=== PATIENT | female | born 1940 | race Caucasian/White ===

== ENCOUNTER 2017-02-22 18:30 | Inpatient (IN) | payer MEDICARE, SELFPAY ==
[~2017-02-22 18:30] MED LIST: ACTOS15 MG PO; ALLOPURINOL100 MG PO; AMARYL4 MG PO; ASPIR-TRIN325 M1 PO; ASPIRIN325 M1 PO; ASPIRIN325 M3 PO; BACTRIM DS TAB1 EAC2 PO; CALCIUM 600+D1 EAC1 PO; CALCIUM 600+D1 EAC6 PO; CARVEDILOL25 MG PO; CATAPRES0.1 M1 PO; CEPHALEXIN500 M1 PO; CHOLESTEROL MED PO; CIPROFLOXACIN750 M1 PO; CLARITIN10 M6 PO; CLINDAMYCIN HC300 M2 PO; CLONIDINE HCL0.2 MG PO; COLACE100 M1 PO; COLCRYS0.6 M1 PO; COREG25 M1 PO; DARVOCET-N 1001 TAB PO; EQL FISH OIL 1,1 CA1 PO; EQL FISH OIL 11 EAC2 PO; FUROSEMIDE20 MG PO; FUROSEMIDE40 M2 PO; GEMFIBROZIL600 M1 PO; GLUCOPHAGE500 MG PO; GLUCOSAMINE & C1 CAP PO; HTN MED PO; HUMALOG100 UNITS/ SC; KEFLEX500 M4 PO; LANTUS100 U/ML SC; LASIX40 M1 PO; LASIX80 M1 PO; LEVEMIR100 UNITS/ SC; LIPITOR80 M1 PO; LISINOPRIL; LISINOPRIL10 MG PO; LORATADINE10 M2 PO; MIRALAX17 G2 PO; MOTRIN IB200 M1 PO; NIACIN TD500 MG PO; NIACIN400 MG PO; NORCO 5/325 TAB1 TAB PO; NORVASC10 M2 PO; NOVOLIN-R100 UNITS/ SC; NOVOLOG100 UNITS/; NOVOLOG100 UNITS/ SC; SULFAMETHOXAZO1 EAC5 PO; TRAMADOL HCL50 M2 PO; TRIAMTERENE; TRIAMTERENE PO; TRICOR; TYLENOL PM EX-1 EAC4 PO; VITAMIN C; VITAMIN C500 M3 PO; VITAMIN D; VITAMIN D250000 UNI1 PO; VITAMIN E400 UNI7 PO; ZYLOPRIM100 M1 PO; [UNRECOGNIZED DRUG - OTHER] PO
[2017-02-22] MEDS ORDERED: CLARITIN10 M6 PO (19:19)
[2017-02-22] MEDS ORDERED: CIPRO250 M2 PO (19:20)
[2017-02-22] MEDS ORDERED: COLCRYS0.6 M1 PO (19:24)
[2017-02-22] MEDS ORDERED: PROTONIX40 M2 PO (19:25)
[2017-02-22] MEDS ORDERED: RENVELA800 M1 PO (19:26)
[2017-02-22] MEDS ORDERED: MUPIROCIN22 G2 TP (19:28)
[2017-02-22] MEDS ORDERED: HUMALOG100 UNITS/ SC (19:29)
[2017-02-22] MEDS ORDERED: LEVAQUIN250 M3 PO (19:31)
[2017-02-22] MEDS ORDERED: TRAMADOL HCL50 M2 PO (19:31)
[2017-02-22] MEDS ORDERED: CALCIUM ACETAT667 M3 PO (19:32)
[2017-02-22] MEDS ORDERED: POTASSIUM CHLO20 ME3 PO (19:32)
[2017-02-22 19:36] LABS: BASO % 0.4 % (0-2); EOS % 0.5 % (0-7); EOSINOPHIL ABSOLUTE COUNT 0.1 tho/cmm (0.0-0.7); HCT-HEMATOCRIT 31.1 % (34.0-49.0); HGB-HEMOGLOBIN 10.1 gm/dl (12.0-15.5); IMMATURE GRANULOCYTES ABSOLUTE 0.24 tho/cmm (0-0.03); IMMATURE GRANULOCYTES PERCENT 2.2 % (0-0.3); LYMPH % 14.6 % (20-45); LYMPH ABSOLUTE COUNT 1.6 tho/cmm (0.8-4.5); MCH (MEAN CORPUSCULAR HGB) 32.6 pg (28.0-32.0); MCHC MEAN CORPUSCULAR HGB CONC 32.5 % (32.0-36.0); MCV (MEAN CELL VOLUME) 100.3 fl (82.0-96.0); MEAN PLATELET VOLUME 9.9 cmc (9.4-12.4); MONO % 11.2 % (0-12); MONOCYTE ABSOLUTE COUNT 1.2 tho/cmm (0.0-1.2); NEUTROPHIL ABSOLUTE COUNT 7.9 tho/cmm (1.6-8.0); NEUTROPHIL-AUTOMATED 7.9 tho/cmm (1.6-8.0); NEUTROPHILS % 71.1 % (40-80); PLATELET COUNT 217 tho/cmm (150-450); RED CELL DISTRIBUTION WIDTH 18.1 % (12.4-16.4); WHITE BLOOD COUNT 11.1 tho/cmm (4.0-10.0)
[2017-02-22 19:55] LABS: ALB/GLOB RATIO 0.3 (0.8-2.0); ALKALINE PHOSPHATASE 120 U/L (33-138); ALT/SGPT 31 U/L (12-78); ANION GAP 19 mmol/L (0-20); AST/SGOT 24 U/L (10-40); BILIRUBIN,TOTAL 0.3 mg/dl (0-1.5); BLOOD UREA NITROGEN 47 mg/dl (6-24); C-REACTIVE PROTEIN 6.9 mg/dl (0-0.9); CALCIUM 9.9 mg/dl (8.5-10.5); CARBON DIOXIDE-VENOUS 24 mmol/L (22-32); CHLORIDE 90 mmol/l (96-110); CREATININE 9.93 mg/dl (0.50-1.10); GLUCOSE 115 mg/dL (70-110); SODIUM 129 mmol/L (135-145); eGFR VALUE FOR BLACK 4 mL/Min
[2017-02-22 20:51] LABS: URINE APPEARANCE HAZY; URINE BILIRUBIN MODERATE (NEG); URINE BLOOD LARGE (NEG); URINE COLOR DARK YELLOW; URINE GLUCOSE (UA) NEGATIVE (NEG); URINE KETONE SMALL (NEG); URINE LEUKOCYTE ESTERASE POSITIVE (NEG); URINE NITRITE POSITIVE (NEG); URINE PROTEIN MODERATE (NEG)
[2017-02-22 21:05] LABS: URINE AMORPHOUS 1+; URINE BACTERIA 1+; URINE EPITHELIAL CELLS 0-3 /[HPF] (0-10)
[2017-02-22 21:06] LABS: URINE RBC 15-30 /[HPF] (0-5); URINE WBC 30-50 /[HPF] (0-5)
[2017-02-23 07:54] LABS: ANION GAP 19 mmol/L (0-20); BLOOD UREA NITROGEN 54 mg/dl (6-24); CALCIUM 9.4 mg/dl (8.5-10.5); CARBON DIOXIDE-VENOUS 24 mmol/L (22-32); CHLORIDE 89 mmol/l (96-110); GLUCOSE 106 mg/dL (70-110); POTASSIUM 4.5 mmol/L (3.7-5.1); SODIUM 127 mmol/L (135-145); eGFR VALUE FOR BLACK 4 mL/Min
[2017-02-23 12:30] LABS: MAGNESIUM 2.2 mg/dl (1.8-2.6); PHOSPHOROUS 4.4 mg/dl (2.5-4.9)
[2017-02-23 18:21] LABS: BASO % 0.3 % (0-2); EOS % 1.7 % (0-7); EOSINOPHIL ABSOLUTE COUNT 0.2 tho/cmm (0.0-0.7); HCT-HEMATOCRIT 27.7 % (34.0-49.0); HGB-HEMOGLOBIN 9.1 gm/dl (12.0-15.5); IMMATURE GRANULOCYTES ABSOLUTE 0.16 tho/cmm (0-0.03); IMMATURE GRANULOCYTES PERCENT 1.8 % (0-0.3); LYMPH % 13.3 % (20-45); LYMPH ABSOLUTE COUNT 1.2 tho/cmm (0.8-4.5); MCH (MEAN CORPUSCULAR HGB) 32.4 pg (28.0-32.0); MCHC MEAN CORPUSCULAR HGB CONC 32.9 % (32.0-36.0); MCV (MEAN CELL VOLUME) 98.6 fl (82.0-96.0); MONO % 10.8 % (0-12); NEUTROPHIL ABSOLUTE COUNT 6.5 tho/cmm (1.6-8.0); NEUTROPHIL-AUTOMATED 6.5 tho/cmm (1.6-8.0); NEUTROPHILS % 72.1 % (40-80); PLATELET COUNT 180 tho/cmm (150-450); RED BLOOD COUNT 2.81 mil/cmm (4.00-5.20); RED CELL DISTRIBUTION WIDTH 17.6 % (12.4-16.4)
[2017-02-24 02:37] LABS: BODY FLUID TYPE DIALYSATE; BODY FLUID VOLUME 2000 ml
[2017-02-24 02:38] LABS: BODY FLUID APPEARANCE CLEAR (CLEAR); BODY FLUID COLOR COLORLESS (COLORLESS); BODY FLUID RBC COUNT <1000 cmm (0); BODY FLUID WBC COUNT 15 cmm
[2017-02-24 02:40] LABS: BODY FLUID LYMPHOCYTES 35 %; BODY FLUID MACROPHAGES 38 %; BODY FLUID NEUTROPHILS 27 %
[2017-02-24 05:44] LABS: ANION GAP 19 mmol/L (0-20); BLOOD UREA NITROGEN 59 mg/dl (6-24); CALCIUM 8.9 mg/dl (8.5-10.5); CARBON DIOXIDE-VENOUS 26 mmol/L (22-32); CHLORIDE 88 mmol/l (96-110); GLUCOSE 142 mg/dL (70-110); MAGNESIUM 2.3 mg/dl (1.8-2.6); SODIUM 128 mmol/L (135-145); eGFR VALUE FOR BLACK 4 mL/Min
[2017-02-25 05:46] LABS: BASO % 0.2 % (0-2); EOS % 1.2 % (0-7); EOSINOPHIL ABSOLUTE COUNT 0.1 tho/cmm (0.0-0.7); HCT-HEMATOCRIT 30.1 % (34.0-49.0); HGB-HEMOGLOBIN 9.6 gm/dl (12.0-15.5); LYMPH % 8.8 % (20-45); LYMPH ABSOLUTE COUNT 0.8 tho/cmm (0.8-4.5); MCH (MEAN CORPUSCULAR HGB) 32.4 pg (28.0-32.0); MCHC MEAN CORPUSCULAR HGB CONC 31.9 % (32.0-36.0); MCV (MEAN CELL VOLUME) 101.7 fl (82.0-96.0); MEAN PLATELET VOLUME 10.9 cmc (9.4-12.4); MONO % 11.5 % (0-12); NEUTROPHIL ABSOLUTE COUNT 7.1 tho/cmm (1.6-8.0); NEUTROPHIL-AUTOMATED 7.1 tho/cmm (1.6-8.0); NEUTROPHILS % 78.3 % (40-80); PLATELET COUNT 180 tho/cmm (150-450); RED BLOOD COUNT 2.96 mil/cmm (4.00-5.20); RED CELL DISTRIBUTION WIDTH 17.2 % (12.4-16.4); WHITE BLOOD COUNT 9.1 tho/cmm (4.0-10.0)
[2017-02-25 05:48] LABS: ANION GAP 19 mmol/L (0-20); BLOOD UREA NITROGEN 49 mg/dl (6-24); CARBON DIOXIDE-VENOUS 26 mmol/L (22-32); CHLORIDE 88 mmol/l (96-110); GLUCOSE 174 mg/dL (70-110); POTASSIUM 4.5 mmol/L (3.7-5.1); SODIUM 128 mmol/L (135-145); eGFR VALUE FOR BLACK 4 mL/Min
[2017-02-27 04:26] LABS: BASO % 0.2 % (0-2); EOS % 1.5 % (0-7); EOSINOPHIL ABSOLUTE COUNT 0.2 tho/cmm (0.0-0.7); HCT-HEMATOCRIT 32.6 % (34.0-49.0); HGB-HEMOGLOBIN 10.7 gm/dl (12.0-15.5); IMMATURE GRANULOCYTES ABSOLUTE 0.09 tho/cmm (0-0.03); IMMATURE GRANULOCYTES PERCENT 0.8 % (0-0.3); LYMPH ABSOLUTE COUNT 1.2 tho/cmm (0.8-4.5); MCH (MEAN CORPUSCULAR HGB) 32.9 pg (28.0-32.0); MCHC MEAN CORPUSCULAR HGB CONC 32.8 % (32.0-36.0); MCV (MEAN CELL VOLUME) 100.3 fl (82.0-96.0); MEAN PLATELET VOLUME 10.3 cmc (9.4-12.4); MONO % 10.2 % (0-12); MONOCYTE ABSOLUTE COUNT 1.1 tho/cmm (0.0-1.2); NEUTROPHIL ABSOLUTE COUNT 8.4 tho/cmm (1.6-8.0); NEUTROPHIL-AUTOMATED 8.4 tho/cmm (1.6-8.0); NEUTROPHILS % 76.3 % (40-80); PLATELET COUNT 181 tho/cmm (150-450); RED BLOOD COUNT 3.25 mil/cmm (4.00-5.20); RED CELL DISTRIBUTION WIDTH 17.8 % (12.4-16.4)
[2017-02-27 04:39] LABS: ANION GAP 21 mmol/L (0-20); BLOOD UREA NITROGEN 36 mg/dl (6-24); CALCIUM 9.3 mg/dl (8.5-10.5); CARBON DIOXIDE-VENOUS 27 mmol/L (22-32); CHLORIDE 86 mmol/l (96-110); CREATININE 9.16 mg/dl (0.50-1.10); GLUCOSE 168 mg/dL (70-110); PHOSPHOROUS 4.7 mg/dl (2.5-4.9); POTASSIUM 4.3 mmol/L (3.7-5.1); SODIUM 130 mmol/L (135-145); eGFR VALUE FOR BLACK 4 mL/Min
[2017-02-27] MEDS ORDERED: ULTRAM50 M1 PO (15:20)
[2017-03-21] MEDS ORDERED: SCOPALAMINE PATCH TOP (13:31)
[2017-03-21] MEDS ORDERED: LIDODERM PATCH TOP (13:33)
[2017-03-21] MEDS ORDERED: [UNRECOGNIZED DRUG - CODE] SC (13:37)
[2017-03-21] MEDS ORDERED: ULTRAM50 M1 PO ×2 (13:38)
[2017-03-21] MEDS ORDERED: TYLENOL325 M2 PO (13:39)
[2017-03-21] MEDS ORDERED: [UNRECOGNIZED DRUG - OTHER] IP (13:41)
[2017-03-21] MEDS ORDERED: DIANEAL IP ×2 (13:41)
[2017-03-21] MEDS ORDERED: [UNRECOGNIZED DRUG - OTHER] IP (13:41)
[2017-03-21] MEDS ORDERED: SIMETHICONE80 M3 PO (13:43)
[2017-03-21] MEDS ORDERED: DULCOLAX10 MG PR (13:43)
[2017-03-21] MEDS ORDERED: SM SENNA-S TAB1 EACH PO (13:51)
[2017-03-21] MEDS ORDERED: TRANSDERM-SCOP1 EACH TD (13:55)
[2017-03-21] MEDS ORDERED: LEVEMIR100 UNITS/ SC (13:56)
[2017-03-21] MEDS ORDERED: NOVOLOG100 UNITS/ (13:56)
[2017-03-21] MEDS ORDERED: NOVOLOG100 UNITS/ SC (13:57)
[2017-03-21] MEDS ORDERED: VITAMIN E400 UNI4 PO (13:58)
[2017-03-21] MEDS ORDERED: LIDODERM1 EACH TOP (13:58)
[2017-03-21] MEDS ORDERED: SODIUM THI12.5 GM/50 IV (13:59)
== END 2017-02-27 16:25 | disposition home health service (06) | DRG 602 ==
LOC: EDMED 18:30 → EMR2 21:49 → 5EB 22:40 → 5WE 02-24 23:30
PROVIDERS: Internal Medicine; Internal Medicine Nephrology; Nurse Practitioner Family; Physician Assistant; ADMIT Hospitalist
PROC: 0JBL3ZX Excision of Right Upper Leg Subcutaneous Tissue and Fascia, Percutaneous Approach, Diagnostic (ICD-10-PCS; principal; 2017-02-27)
DX: L03.115 Cellulitis of right lower limb (principal); N18.6 End stage renal disease; I12.0 Hypertensive chronic kidney disease with stage 5 chronic kidney disease or end stage renal disease; E11.22 Type 2 diabetes mellitus with diabetic chronic kidney disease; E87.1 Hypo-osmolality and hyponatremia; L94.2 Calcinosis cutis; Z99.2 Dependence on renal dialysis; E78.5 Hyperlipidemia, unspecified; M19.90 Unspecified osteoarthritis, unspecified site; Z86.73 Personal history of transient ischemic attack (TIA), and cerebral infarction without residual deficits; Z79.4 Long term (current) use of insulin; Z79.82 Long term (current) use of aspirin; Z79.02 Long term (current) use of antithrombotics/antiplatelets; Z88.0 Allergy status to penicillin; D63.1 Anemia in chronic kidney disease; Z96.653 Presence of artificial knee joint, bilateral; R23.4 Changes in skin texture
CPT/HCPCS: G0378; G8978-GP-CJ; G8979-GP-CI; J1815; J2405; J3370; J7030; P9612